=== PATIENT | female | born 1995 | race Two or more races ===

== ENCOUNTER 2025-08-12 12:30 | Inpatient (IN) | payer MEDICAID, OTHER ==
[~2025-08-12] VITALS: Ht 152.4 cm; Wt 85.7 kg
[2025-08-12 13:25] LABS: PLATELET COUNT (AUTO) 264 K/uL (150-450); RED BLOOD CELL COUNT(AUTO) 4.10 MIL/uL (4.0-5.2); RED CELL DISTRIBUTION WIDTH 16.0 % (11.5-15.0); WHITE BLOOD COUNT (AUTO) 11.2 K/uL (4.3-11.0)
[2025-08-12] MEDS ORDERED: ONDANSETRON HCL/PF 4 MG/2 ML VIAL ONE (13:30)
[2025-08-12] MEDS ORDERED: MORPHINE SULFATE INJ 2 MG/ML DISP.SYRIN ONE (13:30)
[2025-08-12] MEDS ORDERED: FAMOTIDINE/PF INJ 20 MG/2 ML VIAL IV ONE (13:31)
[2025-08-12 13:34] LABS: CALCIUM, SERUM 7.9 mg/dL (8.5-10.1); CREATININE 0.7 mg/dL (0.6-1.3); SODIUM SERUM 135.0 mmol/L (136-145); UREA NITROGEN, BLOOD 12.0 mg/dL (7-18)
[2025-08-12] MEDS: IV NS 0.9% 1,000 ML BAG IV ONE (13:40)
[2025-08-12] MEDS: ONDANSETRON HCL/PF 4 MG/2 ML VIAL IVP ONE (13:40)
[2025-08-12] MEDS: MORPHINE SULFATE INJ 2 MG/ML DISP.SYRIN IV ONE (13:41)
[2025-08-12] MEDS: FAMOTIDINE/PF INJ 20 MG/2 ML VIAL IV ONE (13:41)
[2025-08-12 13:42] LABS: ASPARTATE AMINOTRANSFERASE 19.0 U/L (15-37); TOTAL PROTEIN, SERUM 7.3 g/dL (6.4-8.2)
[2025-08-12] MEDS ORDERED: IOHEXOL-350 100 ML VIAL IV ONE (13:44)
[2025-08-12] MEDS ORDERED: PANTOPRAZOLE 40 MG VIAL ONE (14:34)
[2025-08-12] MEDS: PANTOPRAZOLE 40 MG VIAL IV ONE (14:40)
[2025-08-12 17:04] LABS: APPEARANCE,URINE CLEAR (CLEAR); BLOOD, URINE 3+ Ery/uL (NEGATIVE); LEUKOCYTE ESTERASE ,URINE NEGATIVE (NEGATIVE); NITRITE, URINE NEGATIVE (NEGATIVE); UGLUCOSE NEGATIVE (NEGATIVE)
[2025-08-12 17:08] LABS: PREGNANCY TEST URINE QUAL NEGATIVE (NEGATIVE)
[2025-08-12 17:16] LABS: ADD URINE CULTURE NO
[2025-08-12] MEDS ORDERED: METOCLOPRAMIDE HCL 10 MG/2 ML VIAL ONE (19:14)
[2025-08-12] MEDS: METOCLOPRAMIDE HCL 10 MG/2 ML VIAL IV ONE (19:18)
[2025-08-12] MEDS: IV LR 1000 ML 1,000 ML BAG IV ONE (19:30)
[2025-08-12] MEDS ORDERED: MAGNESIUM HYDROXIDE 30 ML UDC PO PRN (20:00)
[2025-08-12] MEDS ORDERED: MAG HYDROX/AL HYDROX/SIMETH 30 ML UDC PO PRN (20:00)
[2025-08-12] MEDS ORDERED: ACETAMINOPHEN 325 MG TABLET PO PRN (20:00)
[2025-08-12] MEDS ORDERED: ONDANSETRON HCL/PF 4 MG/2 ML VIAL IVP PRN (20:00)
[2025-08-12] MEDS: IV LR 1000 ML 1,000 ML IV SCH (22:30)
[2025-08-12] MEDS: METOCLOPRAMIDE HCL 10 MG/2 ML VIAL IV SCH (22:57)
[2025-08-12] MEDS: PANTOPRAZOLE 40 MG VIAL IV SCH (22:57)
[2025-08-12] MEDS: MORPHINE SULFATE INJ 4 MG/ML DISP.SYRIN IV PRN (23:39)
[2025-08-13 06:20] LABS: PLATELET COUNT (AUTO) 206 K/uL (150-450); RED BLOOD CELL COUNT(AUTO) 3.14 MIL/uL (4.0-5.2); RED CELL DISTRIBUTION WIDTH 15.6 % (11.5-15.0); WHITE BLOOD COUNT (AUTO) 9.1 K/uL (4.3-11.0)
[2025-08-13 06:28] LABS: INR 1.02 (0.91-1.10)
[2025-08-13 07:21] LABS: ASPARTATE AMINOTRANSFERASE 19.0 U/L (15-37); CALCIUM, SERUM 7.5 mg/dL (8.5-10.1); CREATININE 0.5 mg/dL (0.6-1.3); PHOSPHORUS 2.0 mg/dL (2.5-4.9); SODIUM SERUM 136.0 mmol/L (136-145); TOTAL PROTEIN, SERUM 5.9 g/dL (6.4-8.2); UREA NITROGEN, BLOOD 5.0 mg/dL (7-18)
[2025-08-13 08:27] VITALS: BP 130/80; TEMP 98.4; O2SAT 97
[2025-08-13] MEDS: POTASSIUM CL. PREMIX PERIPHER. 50 ML IV SCH (09:27)
[2025-08-13] MEDS: MAGNESIUM HYDROXIDE 30 ML UDC PO SCH (12:22)
[2025-08-13 16:29] VITALS: BP 157/83; TEMP 98.6; O2SAT 96
[2025-08-13] MEDS: NEUTRA PHOS 1 POWD.PACKET PO ONE (17:19)
[2025-08-13] MEDS: KETOROLAC TROMETHAMINE 15 MG/ML VIAL IV PRN (17:20)
[2025-08-13] MEDS ORDERED: KETOROLAC TROMETHAMINE INJ 30 MG/ML VIAL IM PRN (18:00)
[2025-08-13 20:00] VITALS: BP 133/85; TEMP 98.4; TEMP 99.7; O2SAT 98
[2025-08-14] VITALS (9 sets, daily range): BP systolic 125–139; BP diastolic 64–86; TEMP 97.3–98.8; O2SAT 96–99
[2025-08-14] MEDS ORDERED: oxyCODONE/APAP (5/325 MG) 1 UDTAB TABLET PO PRN
[2025-08-14 08:26] LABS: PLATELET COUNT (AUTO) 226 K/uL (150-450); RED BLOOD CELL COUNT(AUTO) 3.06 MIL/uL (4.0-5.2); RED CELL DISTRIBUTION WIDTH 15.6 % (11.5-15.0); WHITE BLOOD COUNT (AUTO) 7.3 K/uL (4.3-11.0)
[2025-08-14 09:04] LABS: CALCIUM, SERUM 8.3 mg/dL (8.5-10.1); CREATININE 0.5 mg/dL (0.6-1.3); SODIUM SERUM 138.0 mmol/L (136-145); UREA NITROGEN, BLOOD 4.0 mg/dL (7-18)
[2025-08-14 09:13] LABS: PHOSPHORUS 2.0 mg/dL (2.5-4.9)
[2025-08-14 17:43] LABS: OCCULT BLOOD STOOL POSITIVE (NEGATIVE)
[2025-08-15 00:40] VITALS: BP 133/80; TEMP 98.1
[2025-08-15] MEDS: Sodium Phosphate 15 MMOL in IV NS 0.9% 245 ML IV ONE (00:46)
[2025-08-15 01:40] VITALS: BP 139/84; TEMP 98.8; O2SAT 98
[2025-08-15 06:51] LABS: PLATELET COUNT (AUTO) 289 K/uL (150-450); RED BLOOD CELL COUNT(AUTO) 3.94 MIL/uL (4.0-5.2); RED CELL DISTRIBUTION WIDTH 15.4 % (11.5-15.0); WHITE BLOOD COUNT (AUTO) 7.1 K/uL (4.3-11.0)
[2025-08-15] MEDS ORDERED: IV LR 1000 ML 1,000 ML IV PRN (10:07)
== END 2025-08-15 13:50 | disposition home health service (06) | DRG 252 ==
LOC: ER 12:41 → MED 19:45
PROVIDERS: ATTEND Nurse Practitioner Family
PROC: 30233N1 Transfusion of Nonautologous Red Blood Cells into Peripheral Vein, Percutaneous Approach (ICD-10-PCS; 2025-08-14)
PROC: 0DJ08ZZ Inspection of Upper Intestinal Tract, Via Natural or Artificial Opening Endoscopic (ICD-10-PCS; principal; 2025-08-14 19:50)
DX: K91.89 Other postprocedural complications and disorders of digestive system (principal); K29.71 Gastritis, unspecified, with bleeding; D50.9 Iron deficiency anemia, unspecified; E66.9 Obesity, unspecified; I10 Essential (primary) hypertension; K31.84 Gastroparesis; Y83.8 Other surgical procedures as the cause of abnormal reaction of the patient, or of later complication, without mention of misadventure at the time of the procedure; Y92.89 Other specified places as the place of occurrence of the external cause; K21.9 Gastro-esophageal reflux disease without esophagitis; Z68.36 Body mass index [BMI] 36.0-36.9, adult; K44.9 Diaphragmatic hernia without obstruction or gangrene
CPT/HCPCS: 36415; 80048-TC; 80053-TC; 80076-TC; 81001; 82272-TC; 83690-TC; 83735-TC; 84100-TC; 84702-TC; 84703-TC; 85025-TC; 85610-TC; 86850-TC; 87086-TC; 97110-TC; 97112-TC; 97116-TC; 97530-TC; 97535-TC; A4223; A6253; A6403; A9563; G0378; J1308; J1885; J2270; J2405; J2470; J2704; J2765; J3480; J7030; J7040; J7050; J7120; P9016; Q9967